=== PATIENT | male | born 1955 ===

== ENCOUNTER 2017-04-24 09:23 | Day surgery (SDC) | payer OTHER ==
[2017-04-21 11:19] VITALS: BMI 34.4
[2017-04-24] MEDS ORDERED: Lidocaine 2% Inj (20ml) ONE (09:35)
[2017-04-24] MEDS ORDERED: Iodixanol 320 MG/ML 200 ML BOTTLE IV ONE (09:36)
[2017-04-24] MEDS ORDERED: Iohexol 350mgl/ml 50 ML ONE (09:36)
[2017-04-24] MEDS ORDERED: Adenosine 90 mg/30mL IV ONE (09:36)
[2017-04-24] MEDS ORDERED: Midazolam 2 MG/2 ML VIAL ONE ×2 (10:10→11:00)
[2017-04-24] MEDS ORDERED: Sodium Chloride 0.9% 1,000 ML IV SCH (12:30)
[2017-04-24 14:39] VITALS: BP 124/68; PULSE 114; RESP 16; TEMP 98; O2SAT 96
--- NOTE | 2017-04-24 19:49 | CARD ---
APPROVED REPORT EKG Measurement Heart [id number] <Conclusion> Atrial fibrillation with rapid ventricular response Abnormal ECG
--- NOTE | 2017-05-20 01:27 | CARDCATH ---
PROCEDURE DATE: 04/24/2017 PROCEDURES: 1. Right coronary artery intervention and drug-eluting stent placement. 2. Unsuccessful left circumflex intervention. CLINICAL INDICATIONS: 1. Angina. 2. Non-ST elevation myocardial infarction. 3. Hypertension. 4. Hyperlipidemia. REFERRING PHYSICIAN: *------*. PERFORMING PHYSICIAN: Dr. Homer Jaramillo. PROCEDURE: After informed consent, the patient was prepped and draped in the usual sterile fashion. 2% lidocaine was given in the left side for local anesthesia. Using micropuncture technique, 6-Swedish sheath was introduced into the left common femoral artery. The patient was preloaded using aspirin 325, Plavix 600 and IV heparin. ACT was maintained above 250. Left coronary was engaged using XB35 6-Swedish guide catheter. On left circumflex coronary, intervention attempted. 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 Right coronary intervention. Right coronary artery was engaged using JR4 6-Swedish guide catheter. Initial angiogram has confirmed distal 90% right coronary artery disease with JOHN-2 flow. The lesion crossed using Runthrough coronary wire. Predilated using 2.5 x 12 compliant balloon. Stented with 2.75 x 18 XIENCE Alpine drug-eluting stent with excellent final angiographic results. CONCLUSION: 1. Unsuccessful intervention on the left circumflex coronary artery. 2. Successful intervention of the right coronary artery with drug-eluting stent placement. The patient will be transferred to [facility] for further management. We will continue to monitor the patient as outpatient. If the patient continues to have symptoms, we will try to intervene the left circumflex coronary artery. Homer Jaramillo MD
== END 2017-04-24 15:00 | disposition short-term general hospital (02) ==
LOC: CATH 09:23 → CCU 12:24 → CATH 15:00
PROVIDERS: ATTEND Internal Medicine Cardiovascular Disease
DX: I48.91 Unspecified atrial fibrillation (principal); I21.4 Non-ST elevation (NSTEMI) myocardial infarction; I25.10 Atherosclerotic heart disease of native coronary artery without angina pectoris; I10 Essential (primary) hypertension; E78.5 Hyperlipidemia, unspecified
CPT/HCPCS: 85175; 85576; 93005; 93454; 99152; 99153; C1725; C1760; C1769 ×3; C1874; C1887 ×2; C1894; C9600; J0153; J1644 ×2; J2250; J3010; J7030; J7040; Q9967